=== PATIENT | female | born 1965 | race Caucasian/White ===

== ENCOUNTER → 2021-01-12 13:07 | Outpatient (CLI) | payer BC, SELFPAY ==
--- NOTE | 2021-01-12 13:45 | MRI_ITS ---
STUDY: MRI LEFT FOREFOOT WITHOUT CONTRAST REASON FOR EXAM: Female, 55 years old. 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 COMPARISON: None. FINDINGS: No acute fracture, dislocation or cortical destruction. Third intermetatarsal web space low T1/low T2 signal lesion measuring 7 mm x 3 mm (short axis image 24 series 3) with adjacent prominent fat. Low T1 sagittal T2 signal lesion at the plantar surface of the foot near the fifth metatarsal head (short axis image 19 series 3) measuring 8 mm x 5 mm. Mild fifth digit soft tissue swelling (axial image 19 series 5). Small volume first metatarsophalangeal joint effusion. Minimal plantar fascial thickening versus tiny fibroma (short axis image 7 series 4) measuring 3 mm x 2 mm. Normal Lisfranc ligament. Normal flexor tendons. Normal extensor tendons. First through fifth digits intact with mild joint space narrowing. 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 First through fifth metatarsals intact. Mild first metatarsal sesamoid joint arthrosis. Minimal tarsometatarsal joint arthrosis. Normal muscles of the midfoot/forefoot. 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
== END ==
PROVIDERS: PCP Internal Medicine; Referring Provider Podiatrist; Visit Provider Podiatrist
DX: D36.7 Benign neoplasm of other specified sites (principal)
CPT/HCPCS: 73718